=== PATIENT | female | born 1950 | race Caucasian/White ===

== ENCOUNTER 2021-10-08 16:39 | Emergency (ER) | payer MEDICARE ==
[~2021-10-08] VITALS: Ht 165.1 cm; Wt 86.2 kg
[2021-10-08] MEDS ORDERED: ACET-2154 PO (17:02)
[2021-10-08] MEDS ORDERED: KETOROLAC TROMETHAMINE 60 MG INJ IM ONE ×2 (17:15→17:23)
--- NOTE | 2021-10-08 19:10 | NUR ---
PT WAS EVALUATED BY DR SHAH. PT WAS D/C'd TO HOME. D/C INSTRUCTIONS GIVEN TO THE PT BY DR SHAH.
[2021-10-08 19:13] VITALS: BP 142/69
== END 2021-10-08 19:14 | disposition home or self-care (01) ==
LOC: ER 16:39
DX: S16.1XXA Strain of muscle, fascia and tendon at neck level, initial encounter (principal); S60.222A Contusion of left hand, initial encounter; S83.91XA Sprain of unspecified site of right knee, initial encounter; S39.012A Strain of muscle, fascia and tendon of lower back, initial encounter; W01.0XXA Fall on same level from slipping, tripping and stumbling without subsequent striking against object, initial encounter; Y93.01 Activity, walking, marching and hiking; Y92.481 Parking lot as the place of occurrence of the external cause; Z88.5 Allergy status to narcotic agent; Z88.0 Allergy status to penicillin; Z88.2 Allergy status to sulfonamides; G40.909 Epilepsy, unspecified, not intractable, without status epilepticus; R03.0 Elevated blood-pressure reading, without diagnosis of hypertension
CPT/HCPCS: 99285; 72125; 73130 ×2; 73564; 72131; 96372; J1885; A4663